=== PATIENT | female | born 2000 | race Caucasian/White ===

== ENCOUNTER 2021-04-28 04:45 | Inpatient (IN) | payer SELFPAY ==
[~2021-04-28] VITALS: Ht 149.9 cm; Wt 54.0 kg
[2021-04-28] VITALS (74 sets, daily range): BP systolic 95–166; BP diastolic 59–110; PULSE 69–151; TEMP 98–102.7
[2021-04-28 05:45] LABS: COLLECTION METHOD CLEAN CATCH
[2021-04-28 05:56] LABS: BASO % 0.5 % (0.0-2.0); EOS # 0.1 K/mm3 (0.0-0.7); EOS % 0.9 % (0.0-4.0); GRAN # 4.2 K/mm3 (1.4-6.5); GRAN % 54.7 % (42.2-75.2); HEMATOCRIT 31.5 % (35.0-45.0); HEMOGLOBIN 10.4 g/dl (12.0-15.0); LYMPH # 2.8 K/mm3 (1.2-3.4); LYMPH % 36.3 % (20.0-51.0); MEAN CELL VOLUME 84 fl (80.0-95.0); MEAN CORPUSCULAR HEMOGLOBIN 28 pg (26-32); MEAN CORPUSCULAR HGB CONC 33 g/dl (33.0-37.0); MEAN PLATELET VOLUME 13.4 fl (7.4-10.4); MONO # 0.6 K/mm3 (0.1-0.6); MONO % 7.2 % (1.7-9.3); MUCOUS Present (NOT PRESENT); PH 6 (5-8); PLATELET COUNT 153 K/mm3 (130-400); RED BLOOD COUNT 3.74 M/mm3 (4.10-5.30); SQUAMOUS EPITHELIAL 0-2 /hpf (0-10); URINE APPEARANCE Clear (CLEAR/HAZY); URINE BACTERIA None Seen /hpf (NONE SEEN); URINE BILIRUBIN Negative (NEGATIVE); URINE BLOOD Negative (NEGATIVE); URINE COLOR Yellow (YELLOW); URINE GLUCOSE Negative (NEGATIVE); URINE KETONE Negative (NEGATIVE); URINE LEUKOCYTE ESTERASE Negative (NEGATIVE); URINE NITRATE Negative (NEGATIVE); URINE PROTEIN(semi-quant) 2+ (NEGATIVE); URINE RBC 0-2 /hpf (0-2); URINE UROBILINOGEN Negative (NEGATIVE)
[2021-04-28] MEDS ORDERED: FERRO-TIME325 MG (06:10)
[2021-04-28] MEDS ORDERED: PRENATAL MVI (06:11)
[2021-04-28 06:13] LABS: ALBUMIN 2.7 gm/dL (3.5-5.0); BILIRUBIN,TOTAL 0.2 mg/dL (0.2-1.2); CALCIUM 8.5 mg/dL (8.4-10.2); POTASSIUM 3.9 mmol/L (3.5-4.5); TOTAL PROTEIN 6.3 gm/dL (6.2-8.1)
[2021-04-28 06:34] LABS: CREATININE, serum 0.54 mg/dL (0.57-1.11)
--- NOTE | 2021-04-28 07:10 | NUR ---
0442- PT ARRIVES TO OB FLOOR VIA W/C, ACCOMPANIED BY FAMILY. 20 YO 40.0 WGA AND HERE FOR LEAKING OF FLUID. PT REPORTS HER WATER BROKE AT 0345 AND IT WAS CLEAR. PT APPEARS GROSSLY RUPTURED WITH CLEAR FLUID. PT ONLY ENGLISH SPEAKING AND LEAD GENERATION REPRESENTATIVE LINE BEING USED TO COMMUNICATE WIHT PT. +FM, +CTX, +LOF 0455- SVE: 3/50/-3 AND CLEAR. 0500- PT REPORTS NO PAIN WITH HER CTX. 0510- REPORT CALLED TO DR. ALBERTS AND NOTIFIED OF PT'S CONDITION. ORDERS REC'D TO ADMIT PT FOR SROM. 0520- #18G IV TO LT AC STARTED. LABS OBTAINED WITH IV START AND SENT DOWN TO LAB. 0530- STRAIGHT CATH OBTAINED AND URINE SENT DOWN TO LAB 0535- LR BOLUS INFUSING. 0553- LEAD GENERATION REPRESENTATIVE VIDEO LINE USED AND CONSENTS GONE OVER WITH PT AND FAMILY AND SIGNED. 0612- LABETALOL 20 MG IV GIVEN 0630- REPORT GIVEN TO HAKEEM JAMES/TRANSFER OF CARE
--- NOTE | 2021-04-28 07:19 | NUR ---
PT SITTING ON EDGE OF BED FOR EPIDURAL PLACEMENT. DIFFICULTY TRACING EFM/TOCO DUE TO MATERNAL POSITIONING. VITAL SIGNS REMAIN STABLE THROUGHOUT PROCEDURE. 0709: SINGLE SHOT PER CLEMENTE HICKMAN. PT TOLERATED PROCEDURE WELL.
--- NOTE | 2021-04-28 13:00 | NUR ---
AT BEDSIDE. SVE /-2 PER . BLOODY SHOW NOTED WITH CHECK. CATEGORY 1 STRIP. UNCHANGED SVE SINCE 1000. VERBAL ORDERS TO BEGIN PITOCIN PER PROTOCOL. PT EDUCATED ON PITOCIN AND PLAN OF CARE VIA TRANSLATATION. PT AGREEABLE. DENIES FURTHER QUESTIONS OR CONCERNS.
--- NOTE | 2021-04-28 15:28 | NUR ---
PT FEELS WARM TO THE TOUCH, UNDER TWO BLANKETS AND SLEEPING. ORAL TEMP 99.5. EXTRA BLANKETS REMOVED. COOL WASH CLOTH TO FOREHEAD. WILL CONTINUE TO MONITOR LOW GRADE FEVER.
--- NOTE | 2021-04-28 16:25 | NUR ---
PT EDUCATED ON TDAP VACCINE VIA COAT ROOM ATTENDANT, STATES SHE IS "UNSURE" IF SHE RECEIVED VACCINE. TDAP NOT LISTED GIVEN IN RECORDS. PT STATES SHE DID NOT GET COVID VACCINE, BUT DID RECIEVE FLU VACCINE. WILL OFFER VACCINE TO PATIENT FOLLOWING DELIVERY.
--- NOTE | 2021-04-28 18:15 | NUR ---
AT BEDSIDE. SVE UNCHANGED, REMAINS /-2. DISCUSSION VIA PROFESSIONAL FUNERAL DIRECTOR AND EMBALMER BETWEEN PT AND DISCUSSING CSECTION POTENTIAL LATER THIS EVENING. PATIENT AGREEABLE TO PLAN OF CARE AT THIS TIME. DENIES FURTHER QUESTIONS OR CONCERNS. PT REMAINS HYPERTENSIVE AND LOW GRADE TEMP OF 99.5 AT THIS TIME. BEDSIDE NURSE REPORT AT THIS TIME TO HAKEEM MARES ON LIVE AMMUNITION INSPECTOR.
--- NOTE | 2021-04-28 19:10 | NUR ---
191- DR VITAL AT BEDSIDE FOR CERVICAL EXAM AND IUPC PLACEMENT. SVE BY DR VITAL, UNCHANGED. IUPC PLACED WITHOUT DIFFICULTY. PT POSITIONED IN RIGHT TILT AND MONITORS ADJUSTED. 1914- PT FEELS HOT TO TOUCH DURING IUPC PLACEMENT. TEMPERATURE TAKEN UNDER LEFT ARMPIT, 101.6. DR VITAL NOTIFIED AND SHE STATES SHE WILL PUT IN ORDERS FOR ANTIBIOTICS AND DIAGNOSE CHORIO. 1919- PITOCIN INCREASED TO 30MUNITS.
--- NOTE | 2021-04-28 19:53 | NUR ---
1952- AMPICILLIN IV STARTED ORDERED, PT RESTING QUIETLY. 2009- AXILLARY TEMP 102.7 DEGREES. 2021- DR VITAL NOTIFIED CHARTED. ON HER WAY. 2034- DR VITAL AT DESK AND REVIEWS STRIP AND VITAL SIGNS. 2039- DR VITAL AT BEDSIDE. SVE UNCHANGED. DR VITAL USES TRACK MAINTAINER TO DISCUSS PROCEEDING WITH SECTION DUE TO NO CERVICAL CHAGNE, CHORIO, AND AND MATERNAL TACHYCARDIA. PT QUESTIONS ANSWERED BY DR VITAL AND PT AGREEABLE WITH PROCEEDING WITH . DR VITAL USES TRACK MAINTAINER TO INFORM PT OF WHAT TO EXPECT WITH AND RECOVERY. 2049- ANESTHESIA NOTIFIED OF . CHARGE AND NURSERY NOTIFIED. 2099- PT OFF MONITORS FOR TRANSPORT TO OR IN BED.
--- NOTE | 2021-04-28 22:06 | NUR ---
2206- PT TO RECOVERY PER BED CHARTED. PACU VITALS STARTED. 2236- PACU VITALS DONE. PT HAS HAD A LOOSE STOOL. PERICARE WITH CLEAN LINENS AND PAD PROVIDED. 2300- PT TRANSFERRED TO ROOM 213 PER BED. AT BEDSIDE. RECOVERY VITALS STARTED. 0100- PT HAS ANOTHER LOOSE STOOL. PERICARE AND LINEN CHANGE PROVIDED. PT ALSO REPORTS SHE IS HAVING PAIN AND WOULD LIKE PAIN MEDICATION.
[2021-04-29] VITALS (9 sets, daily range): BP systolic 101–121; BP diastolic 63–83; PULSE 68–105; TEMP 97.8–98.6
--- NOTE | 2021-04-29 11:23 | NUR ---
0800 PT POC UPDATED USING [employer] JEB. DR. MCKOY AT BEDSIDE TO DISCUSS PLAN OF CARE. THIS RN UPDATED MOM WITH TODAYS PLAN OF CARE. MOTHER ACKNOWLEDGES PLAN. ANTIBIOTIC COURSE DISCUSSED, MOTHER WITH CUI IN PLACE. DRAINING ADEQUATELY. MOTHER NOT ABLE TO HOLD LEGS UP FOR 5 SECONDS YET. 0900-MOTHER REPOSITIONED IN BED. PERICARE PROVIDED. THIS RN TO ASSIST MOTHER WITH . SHIELD USED. NURSED WELL FOR 12/16. MOTHER ASKS ABOUT USING FORMULA. EDUCATION PROVIDED ABOUT INFANT FIRST AND FOLLOWING UP WITH FORMULA BOTTLE IF MOTHER DESIRES. 1120- MOTHER CALLS OUT TO ASK IF BABY IS OK. BABY IS SLEEPING COMFORTABLY IN CRIB. SWADDLED WITH 2 BLANKETS. RN REASSESSES MOTHERS LEGS, CAN HOLD THEM UP FOR 1-2 SECONDS. MOTHER ASKS IF IT IS COLD IN ROOM. RN SHOWS MOTHER HOW TO INCREASE TEMPERATURE AND DOES SO AT THIS TIME. RN GETS MOTHER A WARM BLANKET AND ENCOURAGES MOTHER TO REST.
[2021-04-29 12:44] LABS: MEAN CELL VOLUME 87 fl (80.0-95.0); MEAN CORPUSCULAR HGB CONC 33 g/dl (33.0-37.0); MEAN PLATELET VOLUME 12.8 fl (7.4-10.4); PLATELET COUNT 128 K/mm3 (130-400); RED BLOOD COUNT 2.49 M/mm3 (4.10-5.30); REDCELL DISTRIBUTION WIDTH-CV 16.7 % (11.5-14.5)
[2021-04-29] MEDS ORDERED: PERCOCET 325 MG1 TA2 PO (12:45)
[2021-04-29] MEDS ORDERED: IBU800 M1 PO (12:45)
[2021-04-29 12:47] LABS: HEMATOCRIT 21.6 % (35.0-45.0); MEAN CORPUSCULAR HEMOGLOBIN 29 pg (26-32)
[2021-04-29 12:50] LABS: HEMOGLOBIN 7.2 g/dl (12.0-15.0)
[2021-04-29 12:58] LABS: ALBUMIN 1.8 gm/dL (3.5-5.0); BILIRUBIN,TOTAL 0.2 mg/dL (0.2-1.2); CALCIUM 7.2 mg/dL (8.4-10.2); CREATININE, serum 0.59 mg/dL (0.57-1.11); POTASSIUM 3.6 mmol/L (3.5-4.5); TOTAL PROTEIN 4.5 gm/dL (6.2-8.1)
--- NOTE | 2021-04-29 15:19 | NUR ---
1450 PT STATES SHE NEEDS TO POOP. PT ABLE TO HOLD LEGS OFF OF BED >5 SECONDS AT THIS TIME. PT INSTRUCTED TO SIT ON EDGE OF BED AND DANGLE LEGS. TOLERATED WELL. PT STOOD AT THIS TIME AND AMBULATED TO TOILET. CUI REMOVED. PERICARE PROVIDED. PT REQUESTS TO SIT ON TOILET A LITTLE LONGER. PT EDUCATED TO PULL RED CORD IF SHE FEELS DIZZY OR NEEDS HELP. THIS RN CHARTING IN PT ROOM. FOB WITH MOTHER IN BATHROOM. PT STATES SHE HAD BM AND VOID. PT AMBULATES TO SINK TO WASH HANDS AND GETS BACK IN BED. PT UPDATED WITH PLAN TO VOID 3X, 2 MORE DOSES OF ANTIBIOTICS, THEN CAN REMOVE IV AND SHOWER. PT AGREES TO PLAN.
[2021-04-30 08:15] VITALS: BP 108/66; PULSE 82; TEMP 98.1
--- NOTE | 2021-04-30 14:47 | NUR ---
carnival worker consulted to assist with resources. Patient is georgian speaking only.[employer] Audio Interpreting utilized. Her Stef Kearns present at bedside. This is the first child for both individuals. Patient is planning on breast feeding and formula feeding. She reports that she has everything needed to care for baby at home and is planning on staying home to care for baby. Car seat loacted in room. Patient is provided resource guide . Highlighted the agencies that would benefit her the most due to guide being in [place] and education provided through [employer]. Collaborated with patient's RN and no concerns at this time.
[2021-04-30 17:23] VITALS: BP 117/76; PULSE 71; TEMP 97.6
[2021-04-30 18:44] VITALS: BP 116/71; PULSE 93; TEMP 98.5
[2021-05-01 06:27] LABS: MEAN CELL VOLUME 87 fl (80.0-95.0); MEAN CORPUSCULAR HGB CONC 33 g/dl (33.0-37.0); MEAN PLATELET VOLUME 11.4 fl (7.4-10.4); PLATELET COUNT 167 K/mm3 (130-400); RED BLOOD COUNT 2.21 M/mm3 (4.10-5.30); REDCELL DISTRIBUTION WIDTH-CV 17.4 % (11.5-14.5)
[2021-05-01 06:38] LABS: HEMATOCRIT 19.3 % (35.0-45.0); HEMOGLOBIN 6.3 g/dl (12.0-15.0); MEAN CORPUSCULAR HEMOGLOBIN 29 pg (26-32)
--- NOTE | 2021-05-01 06:43 | NUR ---
LAB CALLED CRITICAL LAB VALUE OF 6.3 HGB AT 0640, DR. MATHEW NOTIFIED AT 0643 NO NEW ORDERS RECEIVED
[2021-05-01 08:15] VITALS: BP 113/72; PULSE 74; TEMP 97.7
--- NOTE | 2021-05-01 10:23 | NUR ---
Initial visit; For Patient Austrian is her second language but seemed to understand Mass Spectroscopist who offered congratulations for the of her daughter. Patient said, "Thank you."
--- NOTE | 2021-05-01 13:59 | NUR ---
PARENTS WATCHING PERIOD OF PURPLE CRYING AT THIS TIME.
--- NOTE | 2021-05-01 18:39 | NUR ---
1710DISCHARGE INSTRUCTIONS REVIEWED WITH PATIENT AND SPOUSE USING AGRICULTURAL PRODUCE SORTER LINE. AGRICULTURAL PRODUCE SORTER IDS #[id number]. #[id number]. PATIENT AND SPOUSE VERBALIZED UNDERSTANDING. WILL NOTIFY THIS RN WHEN READY TO LEAVE. 1750ALL PERSONAL BELONGINGS GATHERED FROM PATIENT ROOM. PATIENT LEFT AMBULATORY AND IN APPARENT DISTRESS. PATIENT ACCOMPANIED BY SPOUSE, THIS RN, AND HAKEEM HILL.
== END 2021-05-01 17:50 | disposition home or self-care (01) | DRG 786 ==
LOC: LDRO 04:45 → OB 05:18 → LDR 05:18 → OB 23:00
PROVIDERS: Obstetrics & Gynecology; Student in an Organized Health Care Education/Training Program; ADMIT Obstetrics & Gynecology
PROC: 10D00Z1 Extraction of Products of Conception, Low, Open Approach (ICD-10-PCS; principal; 2021-04-28)
DX: O99.52 Diseases of the respiratory system complicating childbirth (principal); O41.1230 Chorioamnionitis, third trimester, not applicable or unspecified; D62 Acute posthemorrhagic anemia; J45.909 Unspecified asthma, uncomplicated; O62.1 Secondary uterine inertia; O16.4 Unspecified maternal hypertension, complicating childbirth; O76 Abnormality in fetal heart rate and rhythm complicating labor and delivery; O99.892 Other specified diseases and conditions complicating childbirth; R00.0 Tachycardia, unspecified; O62.2 Other uterine inertia; O90.81 Anemia of the puerperium; Z37.0 Single live birth; Z3A.40 40 weeks gestation of pregnancy; Z23 Encounter for immunization
CPT/HCPCS: J0290; J1100; J1580; J1885; J2210; J2370; J2590; J3010; J7120